=== PATIENT | female | born 2005 | race Caucasian/White ===

== ENCOUNTER 2024-08-09 08:52 | Emergency (ER) | payer OTHER, BC | END 2024-08-09 09:16 | disposition home or self-care (01) | LOC: VM.ED 08:52 | DX: S80.01XA Contusion of right knee, initial encounter (principal); S80.02XA Contusion of left knee, initial encounter; Z79.899 Other long term (current) drug therapy; V49.49XA Driver injured in collision with other motor vehicles in traffic accident, initial encounter | CPT/HCPCS: 99283 ==